=== PATIENT | female | born 1995 | race Hispanic/Latino ===

== ENCOUNTER 2024-01-25 19:25 | Emergency (ER) | payer BC, MEDICAID ==
[~2024-01-25] VITALS: Ht 157.5 cm; Wt 81.6 kg
[2024-01-25 19:28] VITALS: BP 126/75; PULSE 75; RESP 20
[2024-01-25] MEDS: IBUPROFEN 800 MG TAB PO ONE (20:48)
[2024-01-25] MEDS: ACETAMINOPHEN 500 MG TABLET PO ONE (20:48)
== END 2024-01-25 21:10 | disposition home or self-care (01) ==
LOC: EDH 19:25
DX: S93.402A Sprain of unspecified ligament of left ankle, initial encounter (principal); Z90.49 Acquired absence of other specified parts of digestive tract; W18.39XA Other fall on same level, initial encounter; Y93.89 Activity, other specified; Y92.091 Bathroom in other non-institutional residence as the place of occurrence of the external cause; Y99.8 Other external cause status
CPT/HCPCS: 73610